=== PATIENT | male | born 1995 | race Caucasian/White ===

== ENCOUNTER 2022-09-08 17:00 | Emergency (ER) | payer MEDICAID, OTHER ==
[~2022-09-08] VITALS: Ht 170.2 cm; Wt 72.6 kg
[2022-09-08 18:35] VITALS: BP 132/80
[2022-09-08] MEDS ORDERED: KETOROLAC TROMETHAMINE INJ 60 MG/2 ML VIAL IM ONE (19:00)
[2022-09-08] MEDS ORDERED: LORATADINE 10 MG TABLET PO ONE (19:00)
--- NOTE | 2022-09-08 19:17 | NUR ---
covid flu swab collected
[2022-09-08] MEDS ORDERED: KETOROLAC TROMETHAMINE INJ 30 MG/ML VIAL ONE (19:18)
[2022-09-08] MEDS ORDERED: LORATADINE 10 MG TABLET ONE (19:19)
[2022-09-08] MEDS ORDERED: IBUP-1953 PO (20:50)
[2022-09-08] MEDS ORDERED: LORA10TA68 PO (20:50)
== END 2022-09-08 21:31 | disposition home or self-care (01) ==
LOC: ER 17:03
DX: U07.1 COVID-19 (principal)
CPT/HCPCS: 99283; 87426; 96372; 87804; J1885; C9803